=== PATIENT | female | born 1970 | race Caucasian/White ===

== ENCOUNTER → 2016-11-21 | Outpatient (CLI) | payer OTHER ==
[~2016-11-21] MED LIST: CALCTAB7 PO; MULTTAB58 PO; PRT40 PO; TYLOTC500 PO
== END | disposition home or self-care (01) ==
LOC: C.LABSPEC 12:56
PROVIDERS: ATTEND Internal Medicine
DX: J02.9 Acute pharyngitis, unspecified (principal)

== ENCOUNTER → 2017-07-01 | Outpatient (CLI) | payer OTHER ==
--- NOTE | 2017-07-01 13:50 | MAMMOGRAPHY REPORT ---
BILATERAL DIGITAL DIAGNOSTIC MAMMOGRAM TOMOSYNTHESIS WITH CAD AND TARGETED BILATERAL ULTRASOUND: 2016 CLINICAL HISTORY: 46-year-old woman presents with a palpable lump in the lateral left breast which sh wendy has noticed for approximately 6 months. History of prior bilateral breast surgery including fibroa denoma excision from the left breast and duct exploration in the right breast. Family history of aly ast cancer = mother. TECHNIQUE: Bilateral breast tomosynthesis in addition to standard 2D mammography was performed. Spo t magnification right CC and ML views were also obtained. Current study was also evaluated with a [employer] Aided Detection (CAD) system. COMPARISON: Comparison is made to exams dated: 01/21/2012 ultrasound, 01/21/2012 mammogram, 09/05/2010 ultrasound, and 09/05/2010 mammogram - [facility]. BREAST COMPOSITION: The tissue of both breasts is extremely dense, which lowers the sensitivity of m ammography. FINDINGS: Linear scar markers overlie the right 12:00, 6:00 and left 12:00 breast. A triangle palpa ble marker overlies the skin of the 1:00 posterior left breast. There is expected architectural dist ortion in the central right breast, likely from prior excisions, and also in the 12:00 left breast. There are 2 new groupings of microcalcifications in the right breast for which additional spot magnif ication views were obtained. In the right upper outer posterior breast, there is a cluster of puncta te microcalcifications measuring 2.5 mm. Curvilinear and coarse dystrophic appearing calcifications are seen in the 6:00 anterior right breast. Given the interval development, these microcalcification s are indeterminate. The 6:00 cluster most likely represents fat necrosis, but definitive characteri zation of both clusters is recommended, given that they are new. On the right CC projection, there i s a 14 x 8 mm ovoid asymmetry abutting and just posterior to scar marker located in the middle one th ird of the breast. This could represent a cyst or solid mass and further evaluation with ultrasound was performed. No obvious new mass, architectural distortion or suspicious calcifications are seen in the left breas t mammographically. Real-time high-resolution sonographic evaluation was performed in the right breast 11:00 through 1:00 , retroareolar and 5:00 to 7:00 axes, and also in the left 1:00 breast in the area of palpable lump p ointed out by the patient. On palpation, in the left 1:00 axis, 6 cm from the nipple, there is a dis crete 5 mm firm mobile mass. On ultrasound in the area of palpable concern, there is a textural diff erence and a heterogeneous hypoechoic mass measuring 9.4 x 4.5 x 8.4 mm, with non-circumscribed borde rs. This is indeterminate, particularly given the palpable nature and definitive characterization wi th tissue sampling is recommended. Incidental note is made of numerous other anechoic benign simple cysts scattered in the left 1:00 axis. In the right 11:00 breast, 1 cm from the nipple, there is an oval parallel circumscribed hypoechoic benign appearing mass measuring 8.3 x 3.7 8.4 mm. In the 12:0 0 right breast, 3 cm from the nipple, there is a cluster of microcysts measuring 12.1 x 4.9 x 11.5 mm , and this is thought to correlate with the mammographic 14 x 8 mm asymmetry. Another solid lobulate d circumscribed mass is identified in the 7:00 right breast, 4 cm from the nipple, measuring 9.3 x 5. 3 x 13.8 mm. Architectural distortion compatible with scar tissue is identified in the 6:00 periareo lar right breast, correlating with a skin surgical scar from prior excision. A benign anechoic simpl e cyst is seen in the 7:00 periareolar right breast measuring 6.5 mm. IMPRESSION: ACR BI-RADS CATEGORY 4B: INTERMEDIATE SUSPICION FOR MALIGNANCY, TARGETED ULTRASOUND ACR BI-RADS CATEGORY 4B: INTERMEDIATE SUSPICION FOR MALIGNANCY 1. The palpable mass in the 1:00 left breast correlates with a non-circumscribed hypoechoic 1.4 mm s olid-appearing mass on ultrasound. This is not well seen mammographically. Definitive characterizat ion with an ultrasound guided core needle biopsy is recommended. 2. No other suspicious mammographic or targeted sonographic findings in the left breast. 3. There are 2 new clusters the microcalcifications in the right breast approximately 11:00 and 6:00 axes, for which definitive characterization with a stereotactic guided biopsy 2 is recommended. 4. There is a microcyst cluster in the 12:00 right breast, thought to correlate with the ovoid mammo graphic asymmetry, and this is considered benign. However, incidentally identified are 2 solid appea ring masses in the right breast 11:00 and 7:00 axes that most likely represent fibroadenomas, particu larly given the history of a left breast fibroadenoma. However, given that they are newly visualized on ultrasound, a short interval follow-up targeted ultrasound is recommended in 6 months, pending be nign pathology results in both breasts. These results and recommendations were discussed with the patient at the time of the exam. Approximately 10% of breast cancers are not detected with mammography. A negative mammographic report should not delay biopsy if a clinically suggestive mass is present. Shavon Neil M.D. ay/:07/01/2017 10:38:50 Ribbon Cleaner: Charley VAUGHAN(Mainor)(Soraya), [facility] letter sent: Abnormal 4/5 BI-RADS Code: ACR BI-RADS Category 4B: Intermediate Suspicion For Malignancy Ultrasound BI-RADS: ACR BI-RADS Category 4B: Intermediate Suspicion For Malignancy
== END | disposition home or self-care (01) ==
LOC: C.MAMM 08:19
PROVIDERS: ATTEND Internal Medicine
DX: N63 Unspecified lump in breast (principal)

== ENCOUNTER → 2017-07-13 | Outpatient (CLI) | payer OTHER ==
--- NOTE | 2017-07-13 14:01 | Discharge Instructions ---
Discharge Instructions Procedure Procedure Date: Jul 13, 2017. Reason for visit: Right Calcifications/Left Mass. Discharge Discharge Date: Jul 13, 2017. Discharge Diagnosis: post right breast stereotactic guided biopsy x 2 and left breast ultrasound guided core biopsy Instructions Activity Recommendations: Additional Limitations (see below) Return to School/Work: no limitations Recommended Home Diet: No Limitations Provider Instructions: ACTIVITY RECOMMENDATIONS: * No lifting, pushing, pulling or exercising the affected side for three days. RETURN TO SCHOOL/WORK: * You may return to work/school after the procedure, but do not perform any strenuous activities for 24 to 48 hours. MEDICATIONS: * Tylenol (two 325 mg) every four to six hours if needed for mild pain (if not allergic to Tylenol). DIET: * Resume previous diet. SPECIAL CARE INSTRUCTIONS: * Keep biopsy site dry for 24 hours. May shower after 24 hours, but do not soak (bathe) incision. * May remove Tegaderm (plastic patch) tomorrow AFTER showering. * Leave the steri-strips on for one week. Allow the steri-strips to fall off by themselves. If not off after one week, you may remove them. You may place a Bandaid crosswise over the strips, if desired. * Apply ice 10 minutes on and 10 minutes off as needed. * Wear a bra at bedtime to sleep more comfortably for 2-3 days. * Your referring physician should have the results after approximately 5 to 7 business days. * Call for unusual bleeding, fever, drainage, etc or if you have any questions call [phone] during normal business hours or after hours call Dr Neil, . FOLLOW UP VISIT: Follow-up with Referring Physician as scheduled. Allergies Coded Allergies: Hydromorphone (Verified Allergy, Severe, ITCHING, THROAT CLOSED, 07/29/14) Codeine (Verified Allergy, Unknown, 07/29/14) Gentamicin (Verified Allergy, Unknown, 07/29/14) Hydrocodone (Verified Allergy, Unknown, HIVES,SEVERE VOMITING, 07/29/14) Morphine (Verified Allergy, Unknown, 07/29/14) Paroxetine (Verified Allergy, Unknown, 07/29/14) Sertraline (Verified Allergy, Unknown, 07/29/14) Emliy Barkley Recommendations: Call your doctor if: * Temperature above 101 degrees * Pain not relieved by pain medicine ordered * There is increased drainage or redness from any incision * You have any unanswered questions or concerns. Your Doctors Instructions noted above were prepared by provider Shavon Neil. Patient Signature Section: Patient Instructions Signature Page Elizabeth Aparicio Patient (or Guardian) Signature/Date: I have read and understand the instructions given to me by my caregivers. Caregiver/RN/Doctor Signature/Date: The above-named patient and/or guardian has received patient instructions on this date. + Original Patient Signature Page (only) stays with chart. Please make copy for patient.
--- NOTE | 2017-07-13 16:07 | MAMMOGRAPHY REPORT ---
ULTRASOUND GUIDED BIOPSY LEFT BREAST: 07/13/2017 CLINICAL HISTORY: Solid palpable mass with non-circumscribed margins in the 1:00 left breast. Taylor grimes presents for ultrasound guided core biopsy. 2 stereotactic biopsies were performed in the right breast during the same appointment and please ref er to a separate report for full detail. COMPARISON: Comparison is made to exams dated: 07/13/2017 stereotactic biopsy, 07/01/2017 ultrasound, mammogram, 02/10/2012 ductography, 01/21/2012 ultrasound, and 01/21/2012 mammogram - [facility]. PATIENT CONSENT: The procedure, risks and benefits were discussed with the patient and informed conse nt was obtained both verbally and in writing. Specific risks to this procedure include: bleeding, in fection, puncture of adjacent structure, nontarget biopsy, sampling error, pain, metal allergy and me dication reaction. PROCEDURE DESCRIPTION: A time out was performed and the left breast was agreed as the site of biopsy. The skin was prepped and draped in the usual sterile fashion. The palpable hypoechoic solid mass wit h non-circumscribed margins in the 1:00 left breast was chosen as the target for biopsy. Subcutaneous and intraparenchymal 1% buffered lidocaine, with and without epinephrine, was administered as local anesthesia. A skin incision was made. Through the incision, 5 samples were taken with a 14 gauge Ach ieve biopsy device. A ribbon shaped metallic marker was placed at the biopsy site. Hemostasis was ach ieved after manual compression. The patient tolerated the procedure well and there was no immediate c omplication. The samples were sent to the pathology department in an appropriately labeled container . Postprocedure left CC and ML views were obtained. A new ribbon-shaped metallic biopsy marker is seen in the superior posterior left breast on the MLO view. It is not identified on the CC view due to t he far superior, lateral and posterior location. No significant post biopsy hematoma is identified. IMPRESSION: ULTRASOUND GUIDED BIOPSY Status post ultrasound guided core biopsy of an indeterminate solid palpable mass in the 1:00 left br east, with metallic biopsy marker placed at the site. The patient will receive notification of the biopsy results from her referring physician. Shavon Neil M.D. ay/:07/13/2017 15:13:05 Auto Seat Cover Installer: Geetha COOPER)(M), [facility]
--- NOTE | 2017-07-13 16:07 | MAMMOGRAPHY REPORT ---
THIS REPORT HAS BEEN AMENDED. MULTIPLE STEREOTACTIC GUIDED BIOPSIES RIGHT BREAST: 07/13/2017 CLINICAL HISTORY: Two indeterminate clusters of microcalcifications in the right breast. Patient pre sented for stereotactic biopsy 2. COMPARISON: Comparison is made to exams dated: 07/01/2017 ultrasound, 07/01/2017 mammogram, 02/10/2012 du ctography, 01/21/2012 ultrasound, 01/21/2012 mammogram, and 09/05/2010 ultrasound - [facility]. PATIENT CONSENT: After explaining the risks, benefits and alternatives of the procedure to the patien t, informed consent was obtained both verbally and in writing. Specific risks include: Bleeding, inf ection, puncture of adjacent structure, pain, nontarget biopsy, sampling error, metal allergy and med ication reaction. PROCEDURE DESCRIPTION: A time-out was performed and the right breast was confirmed as the site of bio psy. The decision was made to biopsy the cluster of calcifications in the 11:00 posterior aspect of the right breast first, and then biopsy the cluster of calcifications in the 6:[address] second. The patient was placed prone on the stereotactic biopsy table and the breast was placed in lateralme dial compression. A vine fruit farming supervisor image was obtained that demonstrated the clustered calcifications in questi on. They are amenable to sterotactic biopsy. Then +15 and -15 stereo pair images were obtained. Th e calcifications were targeted utilizing the coordinates obtained by the computer. The skin was prep ped with Betadine. 1% Lidocaine with and without epinipherine was administered as local anesthesia. A small skin incision was made. Through the incision, the needle was inserted to the depth determined by the computer. 6 samples were obtained using a [employer] 9-gauge vacuum-assisted biopsy device. The specimen radiograph demonstrated several printing sales representative microcalcifications, therefore, a "dumbbe ll-shaped" metallic marker was placed at the biopsy site. There was no immediate complication. Hemost asis was achieved after several minutes of manual compression. The samples were sent to pathology in two appropriately labeled containers, "with calcifications" and "without calcifications". All of the samples were obtained from the same single biopsy site. Then the right breast was placed in CC from below compression. A vine fruit farming supervisor image was obtained that demons trated the second cluster of coarse heterogeneous calcifications in question. They are amenable to s terotactic biopsy. +15 and -15 stereo pair images were obtained. The calcifications were targeted u tilizing the coordinates obtained by the computer. The skin was prepped with Betadine. 1% Lidocaine with and without epinipherine was administered as local anesthesia. A small skin incision was made. Through the incision, the needle was inserted to the depth determined by the computer. 5 samples were obtained using a Qwiltiva 9-gauge vacuum-assisted biopsy device. The specimen radiograph demonstr ated several printing sales representative microcalcifications, therefore, a "T-shaped" metallic marker was placed a t the biopsy site. There was no immediate complication. Hemostasis was achieved after several minutes of manual compression. The samples were sent to pathology in 1 appropriately labeled container, as calcifications were identified within nearly every core sample. Postprocedure CC and ML views of the right breast were obtained. A new dumbbell-shaped biopsy marker clip is identified in the 11:00 posterior right breast, and a T-shaped biopsy marker clip is seen in the 6:00 anterior right breast, denoting the site of recent biopsy. No significant postbiopsy hemat leandra is identified. IMPRESSION: STEREOTACTIC GUIDED BIOPSY 1. Status post stereotactic guided biopsy 2 in the right breast, with biopsy marker clips placed at each site. 2. The patient also underwent ultrasound guided core biopsy in the 1:00 left breast during the same appointment. Please refer to a separate report for full detail. The patient will receive notification of the biopsy results from her referring physician. Shavon Neil M.D. ay/:07/13/2017 15:17:33 Caustic Room Operator: Geetha COOPER)(Soraya), [facility] AMENDMENT: 07/15/2017 Shavon Neil M.D. Pathology results from the stereotactic guided biopsy of microcalcifications in the 11:00 posterior r ight breast yielded fibrocystic change. No tumor seen. Pathology results of calcifications in the 6 :00 anterior right breast yielded fibrocystic change and to collateralized nodule suggestive of scar are seen. No tumor seen. Pathology results from the ultrasound-guided core biopsy of a mass in the 1:00 left breast yielded a fibroadenoma with myxoid change. The pathology results from all of the ab ove biopsies are concordant with the imaging appearance. A six-month follow-up right diagnostic mammogram and repeat ultrasound is recommended for benign-appe aring solid mass is seen in the right breast on prior diagnostic ultrasound.
--- NOTE | 2017-07-13 16:07 | MAMMOGRAPHY REPORT ---
BILATERAL DIGITAL DIAGNOSTIC MAMMOGRAM TOMOSYNTHESIS: 07/13/2017 CLINICAL HISTORY: Status post stereotactic guided biopsy 2 in the right breast, and ultrasound-guide d core biopsy in the left breast. Please refer to reports from right breast stereotactic guided biopsy and left breast ultrasound guide d core biopsy performed at the same time for full detail. IMPRESSION: POST PROCEDURE IMAGING FOR MARKER PLACEMENT Please refer to reports from right breast stereotactic guided biopsy and left breast ultrasound guide d core biopsy performed at the same time for full detail. Approximately 10% of breast cancers are not detected with mammography. A negative mammographic report should not delay biopsy if a clinically suggestive mass is present. Shavon Neil M.D. ay/:07/13/2017 14:02:21 Sample Preparation Supervisor: Geetha COOPER)(M), [facility] BI-RADS Code: Post Procedure Imaging For Marker Placement
--- NOTE | 2017-07-13 16:07 | MAMMOGRAPHY REPORT ---
STEREOTACTIC GUIDED BIOPSY: 07/13/2017 CLINICAL HISTORY: 2 indeterminate clusters of microcalcifications in the right breast 11:00 posterior and 6:00 anterior axes. Patient presents for stereotactic guided biopsy 2 in the right breast. Please refer the report from right breast stereotactic biopsy performed at the same time for full det ail. IMPRESSION: STEREOTACTIC GUIDED BIOPSY Please refer the report from right breast stereotactic biopsy performed at the same time for full det ail. Shavon Neil M.D. ay/:07/13/2017 14:10:27 Vision Rehabilitation Therapist: Geetha VAUGHAN(R)(M), [facility]
== END | disposition home or self-care (01) ==
LOC: C.MAMM 12:39
PROVIDERS: ATTEND Internal Medicine
DX: R92.0 Mammographic microcalcification found on diagnostic imaging of breast (principal); N60.11 Diffuse cystic mastopathy of right breast; N64.9 Disorder of breast, unspecified; D24.2 Benign neoplasm of left breast

== ENCOUNTER → 2017-08-06 | Outpatient (CLI) | payer OTHER | END | disposition home or self-care (01) | LOC: C.PATHSPEC 14:34 | PROVIDERS: ATTEND Dermatology | DX: C44.41 Basal cell carcinoma of skin of scalp and neck (principal) ==

== ENCOUNTER → 2017-08-18 | Outpatient (CLI) | payer OTHER | END | disposition home or self-care (01) | LOC: C.PATHSPEC 17:25 | PROVIDERS: ATTEND Plastic Surgery | DX: C44.41 Basal cell carcinoma of skin of scalp and neck (principal); L90.5 Scar conditions and fibrosis of skin ==